=== PATIENT | male | born 1995 | race Caucasian/White ===

== ENCOUNTER 2020-03-28 15:25 | Emergency (ER) | payer OTHER, SELFPAY ==
--- NOTE | ~2020-03-28 | XR_ITS ---
EXAMINATION: XR abdomen/kub 1V DATE: 03/28/2020 16:34 INDICATION: Left lower quadrant abdominal pain. TECHNIQUE: A supine view of the abdomen on 2 radiographs was obtained. COMPARISON: None. FINDINGS: There are no dilated loops of bowel. There is a small volume of stool in the colon. There i s a 3 mm calcification in left pelvis. IMPRESSION: 1. Normal bowel gas pattern. 2. 3 mm calcification in left pelvis, which may be a phlebolith or distal ureteral stone. Reviewed, dictated and finalized at location A. [facility] [employer] IMPRESSION: 1. Normal bowel gas pattern. 2. 3 mm calcification in left pelvis, which may be a phlebolith or distal urete ral stone.
[2020-03-28 15:40] VITALS: BP 153/86; PULSE 82; RESP 20; TEMP 36.3; O2SAT 100
--- NOTE | 2020-03-28 16:17 | ED.ABDPAIN ---
HPI - Abdominal Pain General Chief Complaint: Abdominal Pain Stated Complaint: abdominal pain Time Seen by Provider: 03/28/20 16:10 Source: patient and RN notes reviewed Mode of arrival: ambulatory Limitations: no limitations History of Present Illness HPI narrative: 24-year-old male who presents to [facility] care with complaints of left lower abdominal pain since Thursday evening with some discomfort over suprapubic area. Patient states some pressure feeling with urination, denies any burning or any discharge, denies any concern for possible STD's. 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 Patient states normal bowel movement yesterday, denies any diarrhea or constipation, denies any feelings of nausea or vomiting. Patient does have palpable tenderness to his left lower abdomen.Patient states that he has been taking Ibuprofen for his discomfort. MD elicited complaint: abdominal pain (left lower abdomen) Pertinent past history: none Onset (ago): day(s) (3) Pain Consistency: constant Location: LLQ and suprapubic Severity: moderate Pain scale (0-10): 5 Quality: aching and sharp Radiation: LLQ and suprapubic Migration to: no migration Exacerbating factors: movement and other (lifting, prolong position, stairs, walking) Relieving factors: nothing Associated symptoms: dysuria (some discomfort with urination no burning or frequency, pressure feeling) Treatments prior to arrival: NSAIDs Related Data Allergies Allergy/AdvReac Type Severity Reaction Status Date / Time No Known Allergies Allergy Verified 03/28/20 15:56 Review of Systems Review of Systems: Narrative: CONSTITUTIONAL: Denies fever, chills, or sweats. EYES: Denies visual changes, redness, or discharge. ENT: Denies rhinorrhea, congestion, sore throat, or otalgia. CARDIOVASCULAR: Denies chest pain, palpitations, or edema. RESPIRATORY: Denies cough or dyspnea. GASTROINTESTINAL:Positive for left lower and suprapubic abdominal pain,no nausea, vomiting, or diarrhea. GENITOURINARY: Denies dysuria or hematuria. SKIN: Denies rash or itching. MUSCULOSKELETAL: Denies back pain, joint pain, or myalgia. NEUROLOGIC: Denies headache, numbness, or weakness. PSYCHIATRIC: Denies anxiety or depression. All systems reviewed & are unremarkable except as noted in HPI and below PMFSH Past Medical History Medical History (Updated 03/29/20 @ 14:57 by Tashia Bradley NP) No pertinent past medical history Surgical History Surgical History (Updated 03/29/20 @ 14:44 by Tashia Bradley NP) No history of previous surgery Family History Family History (Updated 03/29/20 @ 14:45 by Tashia Bradley NP) Other No significant family history Social History Social History (Updated 03/29/20 @ 14:46 by Tashia Bradley NP) Smoking status: Never smoker Alcohol intake: current Alcohol use details: social Substance use: never Living arrangements: with friend(s) Gender identity (if verbalized by the patient): Male Comments At time of signature, agree with nursing past medical, surgical, social and family history. There is no relevant family history pertinent to the presenting complaint Exam Narrative: Exam Narrative: GENERAL: Well-appearing, well-nourished, and in no acute distress. HEAD: Normocephalic, atraumatic. EYES: PERRLA and EOMI. ENT: Nares clear, no rhinorrhea or epistaxis. Mucous membranes moist. NECK: Supple.no lymphadenopathy CHEST: Clear to auscultation. No respiratory distress.no cough or any dyspnea with SAO2 100% on room air. HEART: Regular rate and rhythm. No murmur heard. Normal peripheral pulses. ABDOMEN: Soft, tender on palpation to left lower quadrant with stated pressure on urination and some discomfort over his suprapubic area,Negative McBurney point tenderness, nondistended, normal active bowel s
== END 2020-03-28 17:00 | disposition home or self-care (01) ==
PROVIDERS: Emergency Provider Registered Nurse
DX: N20.1 Calculus of ureter (principal)
CPT/HCPCS: 74018; 81003; 99213; G0463